=== PATIENT | male | born 1950 | race Caucasian/White ===

== ENCOUNTER 2018-12-03 21:37 | Emergency (ER) | payer OTHER, MEDICARE ==
[~2018-12-03] VITALS: Ht 182.9 cm; Wt 98.6 kg
[2018-12-03 21:39] VITALS: PULSE 80; TEMP 97
[2018-12-03] MEDS ORDERED: TOPROL XL100 MG PO (21:50)
[2018-12-03] MEDS ORDERED: LIPITOR 10MG10 MG PO (21:50)
[2018-12-03] MEDS ORDERED: ELIQUIS 5MG PO (21:51)
[2018-12-03] MEDS ORDERED: DIOVAN 40MG40 MG PO (21:51)
[2018-12-03 22:09] LABS: COLLECTION METHOD CLEAN CATCH
[2018-12-03 22:14] LABS: PH 5 (5-8); SQUAMOUS EPITHELIAL None Seen /hpf; URINE APPEARANCE Clear; URINE BACTERIA None Seen /hpf; URINE BILIRUBIN Negative (NEGATIVE); URINE BLOOD Negative (NEGATIVE); URINE COLOR Yellow; URINE GLUCOSE Negative (NEGATIVE); URINE KETONE Negative (NEGATIVE); URINE LEUKOCYTE ESTERASE Negative (NEGATIVE); URINE NITRATE Negative (NEGATIVE); URINE PROTEIN(semi-quant) Negative (NEGATIVE); URINE RBC None Seen /hpf
[2018-12-03 22:24] LABS: BASO % 0.4 % (0.0-2.0); EOS # 0.1 (0.0-0.7); EOS % 1.4 % (0-4.0); GRAN # 4.5 (1.4-6.5); GRAN % 57.9 % (42.2-75.2); HEMATOCRIT 40.6 % (42.0-52.0); HEMOGLOBIN 13.8 g/dl (13.5-18.0); LYMPH # 2.4 (1.2-3.4); LYMPH % 31.7 % (20.0-51.0); MEAN CELL VOLUME 93 fl (80.0-100.0); MEAN CORPUSCULAR HEMOGLOBIN 32 pg (27.0-31.0); MEAN CORPUSCULAR HGB CONC 34 g/dl (33.0-37.0); MEAN PLATELET VOLUME 10.9 fl (7.4-10.4); MONO # 0.6 (0.1-0.6); MONO % 8.2 % (1.7-9.3); PLATELET COUNT 174 K/mm3 (130-400); RED BLOOD COUNT 4.38 M/mm3 (4.20-5.60); REDCELL DISTRIBUTION WIDTH-CV 13.4 % (11.5-14.5)
[2018-12-03 22:35] LABS: ALANINE AMINOTRANSFERASE 33 U/L (21-72); ALBUMIN 4.1 gm/dL (3.5-5.0); ALCOHOL(ethanol),MEDICAL < 10 mg/dL; ALKALINE PHOSPHATASE 115 U/L (50-136); ANION GAP 12 mmol/L (7-16); AST,SGOT 25 U/L (15-37); BILIRUBIN,TOTAL 0.6 mg/dL (0.0-1.0); BLOOD UREA NITROGEN 19 mg/dL (9-20); CALCIUM 9.2 mg/dL (8.4-10.2); CARBON DIOXIDE 21 mmol/L (22-30); CHLORIDE 105 mmol/L (98-107); CREATININE, serum 1.35 (0.66-1.25); GLUCOSE 102 mg/dL (74-106); POTASSIUM 4.4 mmol/L (3.4-5.0); SODIUM 139 mmol/L (137-145); TOTAL PROTEIN 7.3 gm/dL (6.4-8.2)
[2018-12-03 23:45] VITALS: BP 141/77
== END 2018-12-03 23:45 | disposition home or self-care (01) ==
LOC: COL.ER 21:37
PROVIDERS: Emergency Medicine
DX: G45.9 Transient cerebral ischemic attack, unspecified (principal); I48.91 Unspecified atrial fibrillation; I11.0 Hypertensive heart disease with heart failure; I50.9 Heart failure, unspecified; I25.10 Atherosclerotic heart disease of native coronary artery without angina pectoris; F17.210 Nicotine dependence, cigarettes, uncomplicated; Z86.73 Personal history of transient ischemic attack (TIA), and cerebral infarction without residual deficits; Z95.5 Presence of coronary angioplasty implant and graft; Z95.0 Presence of cardiac pacemaker

== ENCOUNTER 2024-01-16 08:18 | Emergency (ER) | payer OTHER ==
[~2024-01-16] VITALS: Ht 180.3 cm; Wt 81.8 kg
[~2024-01-16 08:18] MED LIST: DIOVAN 40MG40 MG PO; ELIQUIS 5MG PO; LIPITOR 10MG10 MG PO; TOPROL XL100 MG PO
[2024-01-16] MEDS ORDERED: Pantoprazole 40 MG in NS 10 ML IV ONE (09:00)
[2024-01-16] MEDS ORDERED: NS 1,000 ML IV ONE (09:15)
[2024-01-16 09:20] LABS: BASO % 0.1 % (0.0-2.0); EOS % 0.1 % (0.0-4.0); GRAN # 7.6 K/mm3 (1.4-6.5); GRAN % 80.6 % (42.2-75.2); LYMPH # 1.2 K/mm3 (1.2-3.4); MEAN CELL VOLUME 106 fl (80.0-100.0); MEAN CORPUSCULAR HGB CONC 31 g/dl (33.0-37.0); MEAN PLATELET VOLUME 11.5 fl (7.4-10.4); MONO # 0.6 K/mm3 (0.1-0.6); MONO % 5.8 % (1.7-9.3); PLATELET COUNT 165 K/mm3 (130-400); RED BLOOD COUNT 1.29 M/mm3 (4.20-5.60); REDCELL DISTRIBUTION WIDTH-CV 15.4 % (11.5-14.5)
[2024-01-16 09:26] LABS: MEAN CORPUSCULAR HEMOGLOBIN 33 pg (27-31)
[2024-01-16 09:27] LABS: HEMATOCRIT 13.7 % (42.0-52.0); HEMOGLOBIN 4.3 g/dl (13.5-18.0)
[2024-01-16 09:31] LABS: ALBUMIN 2.7 g/dL (3.4-4.8); BILIRUBIN,TOTAL 0.6 mg/dL (0.2-1.2); CREATININE, serum 3.58 mg/dL (0.72-1.25); POTASSIUM 5.6 mEq/L (3.5-4.5); TOTAL PROTEIN 4.4 g/dl (6.2-8.1)
[2024-01-16 10:08] VITALS: TEMP 97.5
[2024-01-16] MEDS ORDERED: Prothrombin Complex Human 2,000 UNITS in Water For Injection,Sterile 80 ML IV ONE (10:30)
[2024-01-16 12:40] VITALS: BP 94/43; PULSE 69
== END 2024-01-16 12:40 | disposition short-term general hospital (02) ==
LOC: COL.ER 08:18
PROVIDERS: Personal Emergency Response Attendant
DX: T68.XXXA Hypothermia, initial encounter (principal); K92.2 Gastrointestinal hemorrhage, unspecified; R09.02 Hypoxemia; Z79.01 Long term (current) use of anticoagulants; Z79.02 Long term (current) use of antithrombotics/antiplatelets; Z79.82 Long term (current) use of aspirin
CPT/HCPCS: J2470; J7030; J7168